=== PATIENT | female | born 1965 | race Caucasian/White ===

== ENCOUNTER 2022-06-15 17:04 | Emergency (ER) | payer BC, SELFPAY ==
[2022-06-15 17:06] VITALS: BP 124/72; PULSE 67; RESP 16; TEMP 36; O2SAT 100; BMI 19.8
--- NOTE | 2022-06-15 17:32 | RAD_ITS ---
STUDY: X-RAY - RIGHT CLAVICLE REASON FOR EXAM: Female, 57 years old. Roll the wrong way in a martial arts class. Suspected right clavicular fracture. Numbness and tingling extending into the right hand and fingers. TECHNIQUE: 2 view(s) of the clavicle. COMPARISON: None. FINDINGS: There is a mildly displaced comminuted fracture of the mid clavicular shaft. Normal acromioclavicular articulation. Normal visualized sternoclavicular articulation. The glenohumeral joint is unremarkable. Normal visualized pulmonary apex. RAD/Clavicle IMPRESSION: Displaced comminuted fracture of the mid clavicle. Electronically Signed: Duglas Hernández DO at 17:51 EDT ,
--- NOTE | 2022-06-15 17:34 | EDS_ITS ---
HPI History of Present Illness Chief Complaint: Upper Extremity Injury Informant: patient Narrative Narrative: Patient was in a martial arts class practicing forward rolls. She did not tuck and roll quite right and felt a crack in her right clavicle. She has pain isolated to that area. No neck pain. She states she feels intermittently a little tingling in her left small finger and may be a little bit of the medial part of the ring finger. No weakness. Motion makes it worse and holding still makes it better. Touching also makes it worse. She has no trouble breathing. She is not on any blood thinners. PFSH PFSH Home Medications oxycodone-acetaminophen 5 mg-325 mg tablet (Percocet) 1 tab PO Q6H PRN pain 3 days #12 tabs 06/15/22 [Rx Last Taken Unknown] Allergy/AdvReac Type Severity Reaction Status Date / Time No Known Allergies Allergy Verified 06/15/22 17:08 Social History Smoking Status: Never smoker ROS ROS ED Eyes Eyes: Denies change in vision ENT ENT ED: Denies sore throat Cardiovascular Cardiovascular: Denies chest pain, palpitations or racing heartbeat Respiratory/Chest Respiratory/Chest: Denies cough, dyspnea or dyspnea on exertion Gastrointestinal Gastrointestinal: Denies vomiting Musculoskeletal Musculoskeletal: Reports other Details: See history of present illness ; Denies neck pain Integumentary Reports other Details: No break in the skin ; Denies rash Neurologic Neurologic: Reports paresthesias; Denies headache(s) or weakness Hematologic/Lymphatic Hematologic/Lymphatic: Denies easy bleeding or easy bruising EXAM Physical Exam Const Vital Signs: 06/15/22 17:06 Temperature 96.8 F L Temperature Source Temporal Pulse Rate 67 Respiratory Rate 16 Blood Pressure 124/72 H Blood Pressure Mean 89 Pulse Ox 100 Oxygen Delivery Method Room Air Positive well nourished and well developed Constitutional Narrative: Patient looks a little bit uncomfortable. General Appearance ED: well developed HEENT normocephalic and atraumatic Eyes EOMs intact bilaterally Neck full ROM and supple Neck Narrative: No bony or paraspinal tenderness. Chest Wall Chest Narrative: Does look to be a step-off of the clavicle on the right. No break or tenting of the skin. No subcutaneous air. Resp normal respiratory effort and clear to auscultation bilaterally Resp Narrative: Breath sounds are equal bilaterally. No sign of asymmetry. No crepitance Cardio regular rate and regular rhythm Cardio Narrative: No muffled tones. GI non-tender Back/Spine no CVA tenderness Cervical Spine: Negative for cervical spine tenderness Thoracic Spine / Upper Back: Negative for thoracic spinal tenderness Extremity Extremity Narrative: Step-off of the right clavicle in the mid lateral aspect. No tenting or break or tear of the skin. Neuro Neuro Narrative: Patient has a little subjective tingling of her small finger. But she can feel when I touch it. She has normal graphesthesia to multiple letters in her right hand. No weakness. No sign of significant neurologic deficit. By her description of the area of tingling this matches ulnar nerve neuropathy. She does not have ulnar nerve tenderness at the medial elbow. Sensorium / Orientation: alert Skin Lesions: no lesions Rashes: no rashes Trauma: no lacerations or abrasions MDM MDM MDM Narrative Medical decision making narrative: 2 view x-ray of the right shoulder interpreted by me shows midclavicular fracture with 2 small fracture fragments. Underlying rib and lung tissue is visualized looks normal. Remainder of bony structure looks normal. Patient will use ice rest sling and pain meds. She should still put shoulder through gentle range of motion while in the sling to prevent stiffness. She sh ould only use the sling for about 3 days. She will follow-up with orthopedics to evaluate for continued conservative therapy versus the occasional option of surgery. Discharge Plan Triage Chief Complaint: Upper Extremity Injury ED Provider: Fernie Moody Dx/Rx/DC Orders Clinical Impression: Closed fracture of right clavicle, Injury while engaged in martial arts Instructions: ED Fracture, Clavicle Prescriptions: New oxycodone-acetaminophen [Percocet] 5-325 mg tablet 1 tab PO Q6H PRN (Reason: pain) 3 Days Qty: 12 0RF Primary Care Provider: Care Physician,No Primary Referrals: Dmitry Lala DO [Med Staff - Active Staff] - 1 Week Care Physician,No Primary [Primary Care Provider] - Disposition Disposition: Home, Self Care
[2022-06-15] MEDS: oxyCODONE 5 MG Tablet PO (18:14)
[2022-06-15 18:27] VITALS: BP 135/88; PULSE 81; RESP 16; O2SAT 99
== END 2022-06-15 18:30 | disposition home or self-care (01) ==
PROVIDERS: Emergency Provider Emergency Medicine; Visit Provider Emergency Medicine
DX: S42.001A Fracture of unspecified part of right clavicle, initial encounter for closed fracture (principal); X50.1XXA Overexertion from prolonged static or awkward postures, initial encounter; Y93.75 Activity, martial arts
CPT/HCPCS: 73000; 99283